=== PATIENT | male | born 1975 | race Caucasian/White ===

== ENCOUNTER 2016-04-30 14:35 | Emergency (ER) ==
[2016-04-30 14:56] VITALS: BP 127/81
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
--- NOTE | 2016-04-30 16:14 | Diag Imaging Result Document ---
PROCEDURE NAME: TRAUMA SHOULDER RIGHT - 04/30/2016 PLAIN RADIOGRAPH OF THE RIGHT SHOULDER, 3 VIEWS: COMPARISON: None available. FINDINGS: There is no discrete fracture, dislocation, or intrinsic osseous lesion. The visualized joint spaces are essentially unremarkable. The surrounding soft tissues are grossly unremarkable. IMPRESSION: No evidence of acute osseous abnormality.
== END 2016-04-30 15:57 | disposition left against medical advice (07) ==
LOC: ED 14:35
DX: M25.511 Pain in right shoulder (principal); M54.9 Dorsalgia, unspecified; W19.XXXA Unspecified fall, initial encounter